=== PATIENT | female | born 1960 | race Caucasian/White ===

== ENCOUNTER 2017-11-23 14:27 | Emergency (ER) | payer OTHER ==
[2017-11-23] MEDS ORDERED: IPRATRPIUM/ALBUTEROL 0.5/2.5MG 3 ML NEBU. (14:40)
[2017-11-23] MEDS: IPRATRPIUM/ALBUTEROL 0.5/2.5MG 3 ML NEBU. NEB (14:45)
[2017-11-23] MEDS: SUCCINYLCHOLINE 200 MG/10 ML VIAL. IV (14:47)
[2017-11-23] MEDS: ETOMIDATE 20 MG/10 ML VIAL. IV (14:47)
[2017-11-23] MEDS: IV NORMAL SALINE 1000ML BAG 1,000 ML IV (14:50)
[2017-11-23] MEDS ORDERED: methylPREDNISolone SOD SUCC PF 125 MG/2 ML VIAL. (14:53)
[2017-11-23] MEDS: methylPREDNISolone SOD SUCC PF 125 MG/2 ML VIAL. IV (14:54)
[2017-11-23] MEDS: MIDAZOLAM 100mg/100ml NS BAG 100 ML IV (15:00)
[2017-11-23 15:03] LABS: ADD MAN DIFF? NO
[2017-11-23 15:08] LABS: BASO # 0.1 x10^3/uL (0.0-0.2); BASO % 1 % (0-3); BILIRUBIN,URINE NEGATIVE (NEG); CLARITY,URINE CLOUDY; COLOR,URINE YELLOW; EOS # 0.1 x10^3/uL (0.0-0.7); EOS % 0 % (0-3); GLUCOSE,URINE NEGATIVE (NEG); HEMATOCRIT 45.2 % (36.0-47.0); HEMOGLOBIN 14.3 g/dL (12.0-15.5); LYMPH # 6.6 x10^3/uL (1.0-4.8); LYMPH % 33 % (24-48); MEAN CORPUSCULAR HEMOGLOBIN 27 pg (25-35); MEAN CORPUSCULAR HGB CONC 32 g/dL (31-37); MEAN CORPUSCULAR VOLUME 85 fL (79-100); MONO # 1.1 x10^3/uL (0.0-1.1); MONO % 5 % (0-9); NEUT # 12.5 x10^3uL (1.8-7.7); NEUT % 61 % (31-73); NITRITE,URINE NEGATIVE (NEG); PH,URINE 5.5; PLATELET COUNT 144 x10^3/uL (140-400); PROTEIN,URINE NEGATIVE (NEG-TRACE); RED BLOOD COUNT 5.29 x10^6/uL (3.50-5.40); RED CELL DISTRIBUTION WIDTH 17.5 % (11.5-14.5); UROBILINOGEN,URINE 0.2 mg/dL (0.2 mg/dL); WHITE BLOOD COUNT 20.4 x10^3/uL (4.0-11.0)
[2017-11-23 15:18] LABS: ANION GAP 22 (6-14); BLOOD UREA NITROGEN 12 mg/dL (7-20); CALCIUM 9.3 mg/dL (8.5-10.1); CARBON DIOXIDE 17 mmol/L (21-32); CHLORIDE 99 mmol/L (98-107); CREATININE 1.2 mg/dL (0.6-1.0); GFR 46.6; GLUCOSE 429 mg/dL (70-99); POTASSIUM 3.7 mmol/L (3.5-5.1); SODIUM 138 mmol/L (136-145)
[2017-11-23 15:24] LABS: ALBUMIN 3.5 g/dL (3.4-5.0); ALK PHOS 123 U/L (46-116); ALT (SGPT) 18 U/L (14-59); AST (SGOT) 27 U/L (15-37); DIRECT BILIRUBIN 0.1 mg/dL (0.0-0.2); LIPASE 123 U/L (73-393); TOTAL BILIRUBIN 0.5 mg/dL (0.2-1.0); TOTAL PROTEIN 7.8 g/dL (6.4-8.2)
[2017-11-23 15:26] LABS: TROPONINI < 0.017 ng/mL (0.000-0.055)
[2017-11-23] MEDS: IOHEXOL 300 MG/ML 100ML VIAL. IV (15:28)
[2017-11-23 15:29] LABS: NT-PRO BNP 2974 pg/mL (0-124)
[2017-11-23] MEDS ORDERED: CONTRAST GIVEN MC (15:30)
[2017-11-23] MEDS: AMIODARONE 150 MG/3 ML VIAL IVP (15:32)
[2017-11-23 15:37] LABS: INR 1.2 (0.8-1.1); PARTIAL THROMBOPLASTIN TIME 31 SEC (24-38); PROTHROMBIN TIME PATIENT 14.4 SEC (11.7-14.0)
[2017-11-23 15:44] LABS: LACTIC ACID 10.3 mmol/L (0.4-2.0)
[2017-11-23] MEDS: NOREPINEPHRIN PREMIX 250 ML IV (15:48)
[2017-11-23 15:50] LABS: BACTERIA,URINE 0 /HPF (0-FEW); HYALINE CASTS, URINE OCCASIONAL /HPF; RBC,URINE RARE /HPF (0-2); SQUAMOUS EPITHELIAL CELL,UR OCC /LPF; WBC,URINE 0 /HPF (0-4)
[2017-11-23] MEDS ORDERED: IOHEXOL 300 MG/ML 100ML VIAL. (15:57)
[2017-11-23] MEDS ORDERED: HEPARIN for ARTERIAL LINE 0 ML (15:57)
[2017-11-23] MEDS ORDERED: LIDOCAINE WITH 8.4% SOD BICARB 3 ML DISP.SYRIN. (15:57)
[2017-11-23] MEDS ORDERED: MORPHINE SULFATE 4 MG/ML DISP.SYRIN. (15:59)
[2017-11-23] MEDS: MORPHINE SULFATE 4 MG/ML DISP.SYRIN. IV (15:59)
[2017-11-23] MEDS ORDERED: TOTAL VOLUME IV (16:00)
[2017-11-23] MEDS ORDERED: ATROPINE 0.5 MG/5 ML DISP.SYRINGE. (16:00)
[2017-11-23] MEDS ORDERED: ALTEPLASE IV (16:00)
[2017-11-23] MEDS ORDERED: AMIODARONE 150 MG/3 ML VIAL (16:00)
[2017-11-23] MEDS ORDERED: EPINEPHrine SYRINGE 1 MG/10 ML SYRINGE (16:00)
[2017-11-23 16:10] LABS: BASE EXCESS ABG -26 mmol/L (-3-3); HCO3 ABG 10 mmol/L (21-28); PO2 ABG 61 mmHg (75-108)
[2017-11-23 16:12] LABS: PCO2 ABG 71 mmHg (35-46); PH ABG 6.77 (7.35-7.45)
[2017-11-23 16:13] LABS: FIO2 ABG 100; SAT O2 ABG 61 % (92-99)
[2017-11-23] MEDS ORDERED: ETOMIDATE 20 MG/10 ML VIAL. IV (16:37)
[2017-11-23] MEDS ORDERED: SUCCINYLCHOLINE 200 MG/10 ML VIAL. (16:38)
[2017-11-24 07:49] LABS: AGAP ISTAT 21 mmol/L (6-14); BUN ISTAT 12 mg/dL (8-26); CHLORIDE ISTAT 106 mmol/L (98-110); CREATININE ISTAT 0.8 mg/dL (0.5-1.4); GLUCOSE ISTAT 395 mg/dL (70-99); HEMATOCRIT ISTAT 47 % (36-40); ION CA ISTAT 1.05 mmol/L (1.13-1.32); POTASSIUM ISTAT 3.8 mmol/L (3.5-5.0); SODIUM ISTAT 138 mmol/L (135-145); TOT CO2 ISTAT 16 mmol/L (23-32)
[2017-11-24 07:50] LABS: TROPONIN BY ISTAT 0.03 ng/ml (<0.08)
== END 2017-11-23 18:20 | disposition expired ==
LOC: ER 14:27
DX: I46.9 Cardiac arrest, cause unspecified (principal); J96.02 Acute respiratory failure with hypercapnia; I26.99 Other pulmonary embolism without acute cor pulmonale; D68.61 Antiphospholipid syndrome
CPT/HCPCS: 31500; 36415; 36600; 51702; 70450; 71045; 71275; 72125; 74177; 80047; 80048; 80076; 81001; 82805; 83605; 83690; 83880; 84484; 85025; 85610; 85730; 86850; 86900; 86901; 93005; 94002; 94660; 96374; 96375; 99291-25; J0171; J0282; J0330; J0461; J2270; J2930; J7030; Q9967